=== PATIENT | male | born 1940 | race Caucasian/White ===

== ENCOUNTER 2016-10-17 07:28 | Day surgery (SDC) | payer OTHER ==
--- NOTE | ~2016-10-17 | OP ---
Record Of Operation [facility] [address]. 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 POSTOPERATIVE DIAGNOSIS: Dense vesical neck contracture. PROCEDURE: Cystoscopy, urethral dilation, difficult Momin catheter placement, examination under anesthesia. SURGEON: Sienna Armas M.D. ANESTHESIA: General. COMPLICATIONS: None. DRAINS: [id number]-[id number], two-way silicone-coated Momin catheter. BRIEF HISTORY: Mr. Lemon is a 76-year-old white male with a history of a radical prostatectomy performed on 08/19/2014, by Dr. Ribera. He underwent dilation in June of 2015 for a vesical neck contracture. I saw him in late 2015 with recurrent voiding dysfunction, but he postponed further intervention due to several conflicts. I saw him last week with worsening voiding and a markedly diminished force of stream. He was emptying his bladder and really did not want to undergo cystoscopy in the office, so we planned for a cysto under anesthesia, dilation, possible DVIU. I instructed him that he would need a catheter for 5 to 7 days given his continence may worsen. There were no unanswered questions. We also discussed the risks of bleeding, infection, anesthesia, injury to adjacent organs, among others. There were no other unanswered questions. DESCRIPTION OF PROCEDURE: Under excellent general anesthesia, the patient was prepped and draped in a standard lithotomy position. Cystoscopy was performed with the 30-degree lens, revealed a normal anterior urethra. The posterior urethra showed a surgically absent prostate with a dense vesical neck contracture pinpoint in size. I used a moveable Core guidewire, placed it through the small opening and softened the tip. I then used the Sullivan sounds from 12-Japanese progressively to 24-Japanese to dilate this contracture. It actually opened up fairly easily after the first dilation. I then reinspected this urethra which was otherwise intact, removed the wire, and then noted a now opened vesical neck. The sphincter appeared to be intact. Inspection of the bladder revealed normal orifices bilaterally with no tumor stones or foreign bodies. I then placed a 24-Japanese silicone- coated Momin catheter which bypassed the obstruction with mild difficulty. I inflated it with 18 mL of sterile water and left it to gravity drain. The urine drainage was crystal clear. Digital exam revealed an empty prostatic fossa. The balloon was palpable within the bladder. I plan to discharge Mr. Lemon as an outpatient with the following instructions: DISCHARGE INSTRUCTIONS: Record Of Operation [facility] [address] [facility] [place] [address] NAME: VELMA LEMON : 40 STATUS : [facility]#: [id number] AGE: 76 ADM/REG DATE : 10/17/16 MR#: [id number] REPORT SERV DATE: 10/17/16 DICTATED BY: Sienna ARMAS DATE: 10/17/16 REPORT STATUS : Draft TRANSCRIBED BY: CHIQUITA DATE: 10/17/16 1. Home today. 2. Pyridium 200 mg one p.o. t.i.d. p.r.n. bladder pain #15 with one refill. 3. It is fine with me if he removes his catheter on 10/22/2016, that would be 5 days from now. If he is uncomfortable with that, then he could follow up in my office on 10/24/2016, for catheter removal. I would like to see him in 6 to 8 weeks after the surgery to reassess his voiding and proceed as indicated at that time. YOSELIN/CHIQUITA Sienna Armas M.D. / [id number] CC: Florentino Guo M.D.
[~2016-10-17 07:28] MED LIST: ADVIL PO; CEFT5 PO; CRESTOR5 MG PO; DITRO5 PO; FLOMAX4 PO; LORT7 PO; MULTIPLE VIT PO; NORCO1 TA1 PO; T PO
== END 2016-10-17 12:05 | disposition home or self-care (01) ==
LOC: SDC 07:28
PROC: 0T7D8ZZ Dilation of Urethra, Via Natural or Artificial Opening Endoscopic (ICD-10-PCS; principal; 2016-10-17 08:45)
DX: N32.0 Bladder-neck obstruction (principal); Z88.8 Allergy status to other drugs, medicaments and biological substances; Z98.890 Other specified postprocedural states; Z87.442 Personal history of urinary calculi; Z85.46 Personal history of malignant neoplasm of prostate; R39.15 Urgency of urination; M19.90 Unspecified osteoarthritis, unspecified site
CPT/HCPCS: 85014; 85018; 93005; C1769; J2405; J3010